=== PATIENT | female | born 1985 | race American Indian/Alaskan Native ===

== ENCOUNTER 2019-04-20 15:27 | Emergency (ER) | payer MEDICAID ==
[2019-04-20 15:40] VITALS: BP 139/95; PULSE 68
[2019-04-20] MEDS ORDERED: predniSONE 20 MG Tab PO ONE (16:18)
--- NOTE | 2019-04-20 16:22 | EDM.PDOC ---
ED HPI GENERAL MEDICAL PROBLEM - General Chief Complaint: Lower Extremity Injury/Pain Stated Complaint: LT LEG NUMB AND TINGLY Time Seen by Provider: 04/20/19 16:03 Source of Information: Reports: Patient, RN Notes Reviewed - History of Present Illness INITIAL COMMENTS - FREE TEXT/NARRATIVE: 34 female comes in with paresthesias left lower leg. Started during the night early yesterday morning with sensation of numbness and tingling left lower leg. This continued all day yesterday and still continues today. She thought it should get better with time and it may be somewhat better but she continues to have a left lower leg numbness and tingling that is not usually there. Mild ache of the left posterior calf. There has been no severe pain for left back upper or lower leg on the left. There is been no focal weakness. She is not diabetic. No chest pain or difficulty breathing. - Related Data Allergies Allergy/AdvReac Type Severity Reaction Status Date / Time No Known Allergies Allergy Verified 04/20/19 15:33 Home Meds: Home Meds Buprenorphine HCl/Naloxone HCl [Suboxone 12 mg-3 mg Sl Film] 1 each SL DAILY [History] DULoxetine [Cymbalta] 60 mg PO DAILY 01/07/19 [History] predniSONE [Prednisone] 50 mg PO DAILY #6 tablet 04/20/19 [Rx] Past Medical History Cardiovascular History: Reports: Hypertension Other Cardiovascular History: states ran out of med, has not refilled. 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 GI Surgical History: Reports: Cholecystectomy Other GI Surgeries/Procedures: gallbladder removed 2003 Social & Family History - Family History Family Medical History: Noncontributory - Tobacco Use Smoking Status *Q: Current Every Day Smoker Years of Tobacco use: 20 Packs/Tins Daily: 0.2 Second Hand Smoke Exposure: No - Caffeine Use Caffeine Use: Reports: Coffee, Soda - Recreational Drug Use Recreational Drug Use: No Review of Systems - Review of Systems Review Of Systems: See Below Mouth/Throat: Denies: Throat Swelling Respiratory: Denies: Shortness of Breath, Wheezing, Pleuritic Chest Pain Cardiovascular: Denies: Chest Pain GI/Abdominal: Denies: Abdominal Pain Musculoskeletal: Reports: Leg Pain (Mild ache L lower post leg). Denies: Joint Pain Neurological: Reports: Numbness, Tingling. Denies: Trouble Speaking, Difficulty Walking, Weakness ED EXAM, GENERAL - Physical Exam Exam: See Below General Appearance: Alert, No Apparent Distress Eye Exam: Bilateral Eye: PERRL Throat/Mouth: Normal Inspection Head: Atraumatic. No: Facial Swelling Neck: Supple, Non-Tender, Full Range of Motion Respiratory/Chest: No Respiratory Distress, Lungs Clear Cardiovascular: Regular Rate, Rhythm Back Exam: Normal Inspection. No: Paraspinal Tenderness, Vertebral Tenderness Extremities: Normal Inspection, Normal Range of Motion, Normal Capillary Refill. No: Pedal Edema, Leg Pain, Increased Warmth, Redness Neurological: Alert, Oriented, No Motor/Sensory Deficits Skin Exam: Warm, Dry, Normal Color, No Rash Course - Vital Signs Last Recorded V/S: Last Vital Signs Temp 97.8 F 04/20/19 15:30 Pulse 68 04/20/19 15:30 Resp 18 04/20/19 15:30 BP 139/95 H 04/20/19 15:30 Pulse Ox 99 04/20/19 15:30 - Orders/Labs/Meds Meds: Medications Discontinued Medications Generic Name Dose Route Start Last Admin Trade Name Toan PRN Reason Stop Dose Admin Prednisone 40 mg 04/20/19 16:18 04/20/19 16:43 Prednisone PO 04/20/19 16:19 40 mg ONETIME ONE Administration - Re-Assessments/Exams Free Text/Narrative Re-Assessment/Exam: 04/21/19 11:10 I did get her up to walk and she did well with that. She did ask her nurse at time of discharge about concern for DVT, she never questioned me about at time of exam but her leg was not warm, swollen or erythematous. She described mild ache L post calf but leg also nontender. Her sx have been primarily sensation of numbness and tingling that starts just below the knee. Etiology of this is unclear but this is a peripheral nerve symptom, not vascular. Have prescribed a course of prednisone for possible sciatica type syndrome. Discharge instr. as documented. Departure - Departure Time of Disposition: 16:21 Disposition: Home, Self-Care 01 Condition: Fair Clinical Impression: Paresthesias/numbness - Discharge Information Prescriptions: predniSONE [Prednisone] 50 mg PO DAILY #6 tablet Instructions: Paresthesia, [id number] Referrals: Kavita Stroud MD [Primary Care Provider] - Forms: ED Department Discharge Additional Instructions: Rest and elevate leg when not walking, prednisone 50 mg daily for the next 6 days. Given given your first dose here in the ED, next dose tomorrow morning. Prescription has been sent electronically to clinic pharmacy. You take Tylenol if needed for discomfort. Try see Dr. Stroud in about 3 to 4 days for recheck, call Sunday morning for appointment
== END 2019-04-20 16:46 | disposition home or self-care (01) ==
LOC: JD.ED 15:27
DX: R20.2 Paresthesia of skin (principal); I10 Essential (primary) hypertension; F32.9 Major depressive disorder, single episode, unspecified; F17.210 Nicotine dependence, cigarettes, uncomplicated; Z79.899 Other long term (current) drug therapy
CPT/HCPCS: 99283; A9270

== ENCOUNTER 2021-04-30 22:14 | Emergency (ER) | payer MEDICAID, OTHER ==
[2021-04-30 22:55] VITALS: BP 159/100; PULSE 98
[2021-04-30 23:35] LABS: CORONAVIRUS COVID-19 NAA POSITIVE (NEGATIVE)
--- NOTE | 2021-04-30 23:59 | EDM.PDOC ---
ED HPI GENERAL MEDICAL PROBLEM - General Chief Complaint: Respiratory Problem Stated Complaint: FEVER/COUGH Time Seen by Provider: 04/30/21 22:40 Source of Information: Reports: Patient History Limitations: Reports: No Limitations - History of Present Illness INITIAL COMMENTS - FREE TEXT/NARRATIVE: Patient is a 36-year-old female with no significant past medical history present ing with a chief complaint of cough, muscle aches, sore throat. Symptoms have been almost 1 week in duration. [id number] medications have been used with only mild relief. Patient has numerous sick contacts with similar symptoms in the household. She is not vaccinated for COVID-19. Patient is not experiencing any vomiting, difficulty breathing, diarrhea. - Related Data Allergies Allergy/AdvReac Type Severity Reaction Status Date / Time No Known Allergies Allergy Verified 08/10/20 11:34 Home Meds: Home Meds Buprenorphine HCl/Naloxone HCl [Suboxone 12 mg-3 mg Sl Film] 1 each SL DAILY 01/07/19 [History] DULoxetine [Cymbalta] 60 mg PO DAILY 01/07/19 [History] predniSONE [Prednisone] 50 mg PO DAILY #6 tablet 04/20/19 [Rx] Past Medical History Cardiovascular History: Reports: Hypertension Other Cardiovascular History: states ran out of med, has not refilled. 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 GI Surgical History: Reports: Cholecystectomy Other GI Surgeries/Procedures: gallbladder removed 2003 Social & Family History - Family History Family Medical History: No Pertinent Family History - Tobacco Use Tobacco Use Status *Q: Current Every Day Tobacco User Years of Tobacco use: 22 Packs/Tins Daily: 0.2 - Caffeine Use Caffeine Use: Reports: Coffee, Soda - Recreational Drug Use Recreational Drug Use: No ED ROS GENERAL - Review of Systems Review Of Systems: See Below Free Text/Narrative/Comment: In addition to that documented in the HPI above, the additional ROS was obtained: Constitutional: Intermittent fevers or chills Eyes: Denies vision changes ENMT: Per HPI CV: Denies chest pain Resp: Denies SOB GI: Denies vomiting or diarrhea : Denies painful urination MSK: Denies recent trauma Skin: Denies new rashes Neuro: Denies new numbness or tingling or weakness Endocrine: Denies unexpected weight loss Heme: Denies bleeding disorders ED EXAM, GENERAL - Physical Exam Exam: See Below Free Text/Narrative:: I have reviewed the triage vital signs Const: Well nourished, well developed, appears stated age Eyes: Pupils Equal and reactive to light bilaterally, no conjunctival injection HENT: No signs of trauma or swelling, Neck supple without meningismus CV: Regular Rate Rhythm, Warm, well-perfused extremities RESP: Unlabored respiratory effort GI: soft, non-tender, non-distended, no masses MSK: No gross deformities appreciated Skin: Warm, dry. No rashes Neuro: Alert, interventional physiatrist II-XII grossly intact. Sensation and motor function of extremities grossly intact. Psych: Appropriate mood and affect. Course - Vital Signs Last Recorded V/S: Last Vital Signs Temp 36.9 C 04/30/21 22:53 Pulse 98 04/30/21 22:53 Resp 15 04/30/21 22:53 BP 159/100 H 04/30/21 22:53 Pulse Ox 95 04/30/21 22:53 - Orders/Labs/Meds Labs: Laboratory Tests 04/30/21 Range/Units 22:47 Influenza Type A RNA Negative (NEGATIVE) Influenza Type B RNA Negative (NEGATIVE) SARS-CoV-2 RNA (JANIE) Positive H (NEGATIVE) Departure - Departure Time of Disposition: 23:59 Disposition: DC/Tfer to SNF 03 Clinical Impression: COVID-19 - Discharge Information Instructions: 10 Things You Can Do to Manage Your COVID-19 Symptoms at Home - [facility] (12/31/2020) Referrals: Kavita Stroud MD [Primary Care Provider] - Forms: ED Department Discharge Sepsis Event Note (ED) - Evaluation Sepsis Screening Result: No Definite Risk - Focused Exam Vital Signs: Vital Signs Temp Pulse Resp BP Pulse Ox 04/30/21 22:53 36.9 C 98 15 159/100 H 95 - Assessment/Plan Assessment:: Patient is 36-year-old female presenting to the emergency room with upper respi ratory tract symptoms. Vital signs within normal limits. No evidence of respiratory distress or hypoxia. Symptoms are consistent with COVID-19. No evidence of streptococcal pharyngitis. Patient did test positive for Covid. No indication for further work-up or treatment at this time. Recommend supportive care management at home. Discharged with outpatient follow-up. Return precautions given as usual. Patient agrees with plan of care.
== END 2021-05-01 00:15 | disposition home or self-care (01) ==
LOC: JD.ED 22:14
DX: U07.1 COVID-19 (principal); I10 Essential (primary) hypertension; E66.9 Obesity, unspecified; Z68.33 Body mass index [BMI] 33.0-33.9, adult; Z72.0 Tobacco use
CPT/HCPCS: 0240U; 99283; 99282

== ENCOUNTER 2021-08-29 15:53 | Emergency (ER) | payer MEDICAID ==
[2021-08-29] MEDS ORDERED: Amoxicillin/Clavulanate K 875-125 MG Tab PO ONE (16:54)
[2021-08-29] MEDS ORDERED: Ketorolac 60 MG/2 ML SDV IM ONE (16:54)
[2021-08-29] MEDS ORDERED: Ondansetron 4 MG Tab.DIS PO ONE (17:14)
[2021-08-29 17:45] VITALS: BP 158/87; PULSE 84
== END 2021-08-29 17:30 | disposition home or self-care (01) ==
LOC: JD.ED 15:53
DX: K02.9 Dental caries, unspecified (principal); I10 Essential (primary) hypertension; E66.9 Obesity, unspecified; Z68.28 Body mass index [BMI] 28.0-28.9, adult; Z72.0 Tobacco use
CPT/HCPCS: 96372; 99282; A9270; J1885; 99284

== ENCOUNTER 2022-03-06 13:31 | Emergency (ER) | payer MEDICAID ==
[2022-03-06 13:54] VITALS: BP 138/94; PULSE 71
== END 2022-03-06 14:29 | disposition home or self-care (01) ==
LOC: JD.ED 13:31
DX: K04.7 Periapical abscess without sinus (principal); I10 Essential (primary) hypertension; E66.9 Obesity, unspecified; Z68.31 Body mass index [BMI] 31.0-31.9, adult
CPT/HCPCS: 99282; 99283

== ENCOUNTER 2022-03-07 15:58 | Emergency (ER) | payer MEDICAID ==
[2022-03-07] MEDS ORDERED: Ketorolac 30 MG/ML SDV IVPUSH ONE (18:58)
[2022-03-07] MEDS ORDERED: cefTRIAXone 1 GM, Lidocaine 1% 2.1 ML IM ONE ×2 (18:58)
[2022-03-07] MEDS ORDERED: Ketorolac 30 MG/ML SDV IM ONE (19:28)
[2022-03-07 20:29] VITALS: BP 140/96; PULSE 63
== END 2022-03-07 20:13 | disposition home or self-care (01) ==
LOC: JD.ED 15:58
DX: K04.7 Periapical abscess without sinus (principal); I10 Essential (primary) hypertension; E66.9 Obesity, unspecified; Z68.31 Body mass index [BMI] 31.0-31.9, adult; Z86.16 Personal history of COVID-19; Z79.899 Other long term (current) drug therapy
CPT/HCPCS: 96372; 99282; J0696; J1885